=== PATIENT | female | born 1950 | race Caucasian/White ===

== ENCOUNTER → 2019-11-26 | Outpatient (CLI) | payer OTHER ==
[2019-11-26 09:20] LABS: Basophils % (A) 0 %; Eosinophils # (A) 0.1 k/uL (0-0.7); Eosinophils % (A) 2 %; HCT 38.9 % (34.0-46.0); HGB 12.9 gm/dL (11.4-16.0); Lymphocytes % (A) 31 %; MCH 29.8 pg (25.0-35.0); MCHC 33.1 g/dL (31.0-37.0); Monocytes # (A) 0.5 k/uL (0-1.0); Monocytes % (A) 9 %; Neutrophils # (A) 3.5 k/uL (1.3-7.7); Neutrophils % (A) 56 %; Platelet Count 268 k/uL (150-450); RBC 4.32 m/uL (3.80-5.40); RDW 13.4 % (11.5-15.5); WBC 6.2 k/uL (3.8-10.6)
[2019-11-26 10:07] LABS: Erythrocyte Sedimentation Rate 21 mm/hr (0-20)
[2019-11-26 16:40] LABS: C Reactive Protein <0.4 mg/dL (0.0-0.8)
== END | disposition home or self-care (01) ==
LOC: LABWHC1 07:31
PROVIDERS: ATTEND Orthopaedic Surgery Orthopaedic Trauma
DX: M86.471 Chronic osteomyelitis with draining sinus, right ankle and foot (principal)
CPT/HCPCS: 36415; 82306; 85025; 85652; 86140

== ENCOUNTER → 2019-12-30 | Outpatient (CLI) | payer OTHER ==
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
== END | disposition home or self-care (01) ==
LOC: RADCTMAIN 10:07
PROVIDERS: ATTEND Orthopaedic Surgery Orthopaedic Trauma
DX: Z98.890 Other specified postprocedural states (principal); M89.8X8 Other specified disorders of bone, other site
CPT/HCPCS: 82565; 84520; 36415; 73702; Q9967